=== PATIENT | female | born 1960 | race African-American/Black ===

== ENCOUNTER 2019-04-08 14:54 | Emergency (ER) | payer MEDICAID, OTHER ==
[~2019-04-08] VITALS: Ht 160 cm; Wt 58.1 kg
[2019-04-08 15:30] VITALS: BP 147/103
[2019-04-08 16:52] LABS: Urine Bacteria NONE SEEN /hpf (None Seen); Urine Blood Negative /uL (Negative); Urine Mucus FEW (None Seen); Urine Specific Gravity 1.025 (1.001-1.035); Urine WBC 25 /hpf (0 - 5)
== END 2019-04-08 16:11 | disposition home or self-care (01) ==
LOC: ER 14:58
DX: N76.0 Acute vaginitis (principal); B96.89 Other specified bacterial agents as the cause of diseases classified elsewhere; N30.00 Acute cystitis without hematuria; F17.210 Nicotine dependence, cigarettes, uncomplicated; Z86.73 Personal history of transient ischemic attack (TIA), and cerebral infarction without residual deficits
CPT/HCPCS: 81001